=== PATIENT | male | born 1955 | race African-American/Black ===

== ENCOUNTER 2021-06-23 11:31 | Inpatient (IN) | payer MEDICARE, MEDICAID ==
[~2021-06-23] VITALS: Ht 177.8 cm; Wt 107.0 kg
[2021-06-23] MEDS ORDERED: SODIUM CHLORIDE 0.9% 1,000 ML IV ONE ×2 (12:15→15:30)
[2021-06-23 13:04] LABS: HEMOGLOBIN. 10.7 g/dL (14.0-18.0); MEAN CORPUSCULAR HEMOGLOBIN 27.4 pg (28.0-32.0); MEAN CORPUSCULAR VOLUME 86.9 fL (80.0-94.0); MEAN PLATELET VOLUME 8.7 fl (7.4-10.4); PLATELET 429 x1000/uL (130-400); RED BLOOD CELL COUNT 3.91 mill/uL (4.7-6.1)
[2021-06-23 13:11] LABS: CHLORIDE 125 mEq/L (98-107)
[2021-06-23 13:16] LABS: INR 1.2; PARTIAL THROMBOPLASTIN TIME 36.3 sec (23.4-31.0)
[2021-06-23 13:18] LABS: ETHANOL BLOOD < 10 mg/dL
[2021-06-23 13:19] LABS: PHOSPHORUS 2.8 mg/dL (2.5-4.9)
[2021-06-23 13:33] LABS: CREATINE KINASE 314 IU/L (39-308)
[2021-06-23 13:45] LABS: HEPATITIS B SURFACE ANTIGEN NEGATIVE
[2021-06-23 13:48] LABS: BG BASE EXCESS -2.5 mmol/L (-2.0-2.0); BG CARBOXYHEMOGLOBIN 0.9 % (0.5-1.5); BG FRACTION INSPIRED OXYGEN 21; BG HCO3 ACT 20.1 mmol/L (22.0-26.0); BG METHEMOGLOBIN 0.2 % (0.0-1.5); BG OXYGEN SATURATION 89.9 % (92.0-98.5); BG OXYHEMOGLOBIN 88.9 % (94.0-97.0); BG PCO2 28.5 mmHg (35.0-45.0); BG PH 7.467 (7.350-7.450); BG PO2 59.9 mmHg (75.0-100.0); BG TOTAL HEMOGLOBIN 11.6 g/dL (12.0-18.0); BG VENT MODE ROOM AIR
[2021-06-23 13:50] LABS: PLATELET ESTIMATE SLIGHTLY INCREASED
[2021-06-23 15:26] LABS: CLARITY URINE CLOUDY (CLEAR); COLOR URINE DARK YELLOW (YELLOW); KETONES URINE TRACE (NEGATIVE); LEUKOCYTE ESTERASE URINE 1+ (NEGATIVE); NITRITE URINE POSITIVE (NEGATIVE); OCCULT BLOOD URINE TRACE (NEGATIVE); PH URINE 5.5 (4.5-8.0); PROTEIN URINE 1+ (NEGATIVE); SPECIFIC GRAVITY URINE 1.023 (1.005-1.030)
[2021-06-23] MEDS ORDERED: VANCOMYCIN 1 G PREMIX 200 ML IV ONE (15:30)
[2021-06-23] MEDS ORDERED: CEFTRIAXONE 1 G PREMIX 50 ML IV ONE (15:30)
[2021-06-23 17:04] LABS: *BENZODIAZEPINES SCREEN URINE NEGATIVE (NEGATIVE); METHADONE URINE SCREEN NEGATIVE (NEGATIVE); OPIATES URINE SCREEN NEGATIVE (NEGATIVE); PHENCYCLIDINE URINE SCREEN NEGATIVE (NEGATIVE)
[2021-06-23 17:06] LABS: *AMPHETAMINES SCREEN URINE NEGATIVE (NEGATIVE); *BARBITURATES SCREEN URINE NEGATIVE (NEGATIVE); *COCAINE SCREEN URINE NEGATIVE (NEGATIVE); CANNABINOID URINE SCREEN NEGATIVE (NEGATIVE)
[2021-06-23] MEDS ORDERED: ONDANSETRON HCL 4MG/2ML INJ IV PRN (21:30)
[2021-06-23] MEDS ORDERED: DIPHENHYDRAMINE 50MG/ML VIAL IV PRN (21:30)
[2021-06-23] MEDS ORDERED: CLONIDINE 0.1MG TABLET PO PRN (21:30)
[2021-06-23] MEDS ORDERED: MORPHINE SULFATE 2 MG/ML CPJ (NOT FOR IM USE) IV PRN (21:30)
[2021-06-23] MEDS ORDERED: LORAZEPAM 2MG/ML CPJ IV PRN (21:30)
[2021-06-23] MEDS ORDERED: MAGNESIUM/ALUMINUM HYDROXIDE/SIMETHICONE 30ML UDC PO PRN (21:30)
[2021-06-23] MEDS ORDERED: ACETAMINOPHEN 325MG TABLET PO PRN (21:30)
[2021-06-23] MEDS ORDERED: HYDRALAZINE 20MG/ML VIAL IV PRN (21:30)
[2021-06-23] MEDS ORDERED: DOCUSATE SODIUM 100MG CAPSULE PO PRN (21:30)
[2021-06-23] MEDS ORDERED: HYDROCODONE/ACETAMINOPHEN 5/325MG TABLET PO PRN (21:30)
[2021-06-23] MEDS ORDERED: IPRATROPIUM/ALBUTEROL 0.5-3(2.5)MG/3ML NEB HHN PRN (21:30)
[2021-06-23] MEDS ORDERED: GUAIFENESIN 200MG/10ML SUGAR FREE UDC PO PRN (21:30)
[2021-06-23] MEDS: SODIUM CHLORIDE 0.9% INJ 3ML FLUSH IVF SCH (22:00)
[2021-06-23] MEDS ORDERED: NALOXONE HCL 0.4MG/ML VIAL IV PRN (22:15)
[2021-06-23] MEDS: PIPERACILLIN/TAZ 3.375G PREMIX 50 ML IV SCH (22:52)
[2021-06-23] MEDS: DEXTROSE 5% WATER 1,000 ML IV SCH (23:04)
[2021-06-24] MEDS: ENOXAPARIN 30MG/0.3ML SYR SUBCUT SCH ×2 (00:13→20:58)
[2021-06-24] MEDS: SODIUM CHLORIDE 0.9% INJ 3ML FLUSH IVF SCH ×3 (07:57→21:00)
[2021-06-24 08:56] LABS: BASOPHILS % 0.5 % (0.0-2.0); EOSINOPHILS % 4.4 % (0.0-5.0); HEMATOCRIT. 33.5 % (42.0-52.0); HEMOGLOBIN. 10.5 g/dL (14.0-18.0); LYMPHOCYTES % 8.9 % (20.0-50.0); MEAN CORPUSCULAR HEMOGLOBIN 27.5 pg (28.0-32.0); MEAN CORPUSCULAR VOLUME 87.5 fL (80.0-94.0); MEAN PLATELET VOLUME 8.6 fl (7.4-10.4); MONOCYTES % 6.7 % (2.0-8.0); NEUTROPHILS % 79.5 % (40.0-76.0); PLATELET 382 x1000/uL (130-400); RED BLOOD CELL COUNT 3.83 mill/uL (4.7-6.1); RED CELL DISTRIBUTION WIDTH 18.7 % (11.6-14.6)
[2021-06-24 08:59] LABS: CHLORIDE 124 mEq/L (98-107)
[2021-06-24] MEDS: PIPERACILLIN/TAZ 3.375G PREMIX 50 ML IV SCH (09:29)
[2021-06-24] MEDS: DEXTROSE 5% WATER 1,000 ML IV SCH (11:20)
[2021-06-24 12:00] VITALS: BP 122/71
[2021-06-24] MEDS: VANCOMYCIN 1 G PREMIX 200 ML IV SCH (13:50)
[2021-06-24] MEDS: PIPERACILLIN/TAZOBACTAM 3.375G in DEXT 5% WATER 50ML IV SCH ×2 (14:00→21:00)
[2021-06-24 16:00] VITALS: BP 124/84
[2021-06-24 20:00] VITALS: BP 125/66
[2021-06-25] VITALS: BP 110/56
[2021-06-25] MEDS: DEXTROSE 5% WATER 1,000 ML IV SCH ×3 (00:40→21:51)
[2021-06-25 04:00] VITALS: BP 112/59
[2021-06-25] MEDS: SODIUM CHLORIDE 0.9% INJ 3ML FLUSH IVF SCH ×2 (05:59→13:51)
[2021-06-25] MEDS: PIPERACILLIN/TAZOBACTAM 3.375G in DEXT 5% WATER 50ML IV SCH ×3 (05:59→21:50)
[2021-06-25 08:05] VITALS: BP 131/37
[2021-06-25 08:53] LABS: CHLORIDE 123 mEq/L (98-107)
[2021-06-25] MEDS: ENOXAPARIN 30MG/0.3ML SYR SUBCUT SCH ×2 (09:00→21:51)
[2021-06-25] MEDS: VANCOMYCIN 1 G PREMIX 200 ML IV SCH ×2 (11:14)
[2021-06-25 16:00] VITALS: BP 142/71
[2021-06-25 20:00] VITALS: BP 141/77
[2021-06-26] VITALS: BP 128/63
[2021-06-26 04:00] VITALS: BP 117/60
[2021-06-26] MEDS: PIPERACILLIN/TAZOBACTAM 3.375G in DEXT 5% WATER 50ML IV SCH ×3 (05:24→20:49)
[2021-06-26] MEDS: SODIUM HYPOCHLORITE 0.125% 473ML SOLUTION TOP SCH (09:36)
[2021-06-26] MEDS: ENOXAPARIN 30MG/0.3ML SYR SUBCUT SCH ×2 (09:36→20:49)
[2021-06-26 12:00] VITALS: BP 123/65
[2021-06-26] MEDS: VANCOMYCIN 1 G PREMIX 200 ML IV SCH (12:05)
[2021-06-26 16:00] VITALS: BP 120/64
[2021-06-26 16:27] LABS: BASOPHILS % 0.3 % (0.0-2.0); EOSINOPHILS % 3.4 % (0.0-5.0); HEMATOCRIT. 33.3 % (42.0-52.0); HEMOGLOBIN. 10.3 g/dL (14.0-18.0); LYMPHOCYTES % 9.5 % (20.0-50.0); MEAN CORPUSCULAR HEMOGLOBIN 26.8 pg (28.0-32.0); MEAN CORPUSCULAR VOLUME 86.8 fL (80.0-94.0); MEAN PLATELET VOLUME 8.5 fl (7.4-10.4); MONOCYTES % 5.6 % (2.0-8.0); NEUTROPHILS % 81.2 % (40.0-76.0); PLATELET 456 x1000/uL (130-400); RED BLOOD CELL COUNT 3.84 mill/uL (4.7-6.1)
[2021-06-26] MEDS: DEXTROSE 5% WATER 1,000 ML IV SCH (16:32)
[2021-06-26 16:39] LABS: CHLORIDE 117 mEq/L (98-107)
[2021-06-26 20:00] VITALS: BP 121/58
[2021-06-27] MEDS: DEXTROSE 5% WATER 1,000 ML IV SCH ×2 (05:51→19:20)
[2021-06-27] MEDS: PIPERACILLIN/TAZOBACTAM 3.375G in DEXT 5% WATER 50ML IV SCH ×3 (05:51→21:18)
[2021-06-27 08:00] VITALS: BP 137/74
[2021-06-27] MEDS: SODIUM HYPOCHLORITE 0.125% 473ML SOLUTION TOP SCH (09:43)
[2021-06-27] MEDS: ENOXAPARIN 30MG/0.3ML SYR SUBCUT SCH ×2 (09:44→21:00)
[2021-06-27] MEDS: VANCOMYCIN 1 G PREMIX 200 ML IV SCH (11:05)
[2021-06-27 12:00] VITALS: BP 139/69
[2021-06-27 16:00] VITALS: BP 135/74
[2021-06-27 21:00] VITALS: BP 120/70
[2021-06-28] MEDS: PIPERACILLIN/TAZOBACTAM 3.375G in DEXT 5% WATER 50ML IV SCH ×3 (06:20→23:17)
[2021-06-28 08:06] VITALS: BP 138/68
[2021-06-28] MEDS: DEXTROSE 5% WATER 1,000 ML IV SCH ×2 (08:22→23:18)
[2021-06-28] MEDS: SODIUM HYPOCHLORITE 0.125% 473ML SOLUTION TOP SCH (08:22)
[2021-06-28] MEDS: ENOXAPARIN 30MG/0.3ML SYR SUBCUT SCH ×2 (08:23→23:18)
[2021-06-28] MEDS: VANCOMYCIN 1 G PREMIX 200 ML IV SCH (11:21)
[2021-06-28 12:26] VITALS: BP 130/59
[2021-06-28 16:20] VITALS: BP 107/75
[2021-06-28] MEDS: METHYLPREDNISOLONE SOD SUCC 125 MG/2 ML VIAL IV SCH ×2 (18:00→23:17)
[2021-06-28 20:00] VITALS: BP 151/85
[2021-06-29] MEDS: METHYLPREDNISOLONE SOD SUCC 125 MG/2 ML VIAL IV SCH ×3 (05:47→17:18)
[2021-06-29 08:00] VITALS: BP 143/50
[2021-06-29] MEDS: ENOXAPARIN 30MG/0.3ML SYR SUBCUT SCH ×2 (09:00→21:00)
[2021-06-29] MEDS: SODIUM HYPOCHLORITE 0.125% 473ML SOLUTION TOP SCH (09:28)
[2021-06-29 12:00] VITALS: BP 137/65
[2021-06-29] MEDS: VANCOMYCIN 1 G PREMIX 200 ML IV SCH (12:10)
[2021-06-29] MEDS: DEXTROSE 5% WATER 1,000 ML IV SCH (12:11)
[2021-06-30] VITALS: BP 127/76
[2021-06-30] MEDS: DEXTROSE 5% WATER 1,000 ML IV SCH ×3 (00:22→23:44)
[2021-06-30] MEDS: METHYLPREDNISOLONE SOD SUCC 125 MG/2 ML VIAL IV SCH ×5 (00:22→23:42)
[2021-06-30 03:58] VITALS: BP 118/76
[2021-06-30 08:00] VITALS: BP 136/81
[2021-06-30] MEDS: ENOXAPARIN 30MG/0.3ML SYR SUBCUT SCH ×2 (09:00→20:18)
[2021-06-30] MEDS: SODIUM HYPOCHLORITE 0.125% 473ML SOLUTION TOP SCH (09:06)
[2021-06-30 12:00] VITALS: BP 125/65
[2021-06-30 16:00] VITALS: BP 152/73
[2021-06-30 20:00] VITALS: BP 177/69
[2021-07-01] MEDS: METHYLPREDNISOLONE SOD SUCC 125 MG/2 ML VIAL IV SCH (05:49)
[2021-07-01 06:47] LABS: HEMATOCRIT. 34.6 % (42.0-52.0); HEMOGLOBIN. 10.7 g/dL (14.0-18.0); MEAN CORPUSCULAR VOLUME 86.9 fL (80.0-94.0); MEAN PLATELET VOLUME 8.4 fl (7.4-10.4); PLATELET 583 x1000/uL (130-400); RED BLOOD CELL COUNT 3.98 mill/uL (4.7-6.1); RED CELL DISTRIBUTION WIDTH 19.4 % (11.6-14.6)
[2021-07-01 07:03] LABS: CHLORIDE 110 mEq/L (98-107)
[2021-07-01 08:00] VITALS: BP 137/41
[2021-07-01] MEDS: ENOXAPARIN 30MG/0.3ML SYR SUBCUT SCH ×2 (09:53→21:00)
[2021-07-01] MEDS: SODIUM HYPOCHLORITE 0.125% 473ML SOLUTION TOP SCH (09:54)
[2021-07-01 12:00] VITALS: BP 129/61
[2021-07-01 16:12] VITALS: BP 129/61
[2021-07-01 20:32] VITALS: BP 164/68
[2021-07-01 22:54] LABS: PLATELET ESTIMATE INCREASED
[2021-07-02 00:19] VITALS: BP 155/70
[2021-07-02 04:00] VITALS: BP 146/88
[2021-07-02 05:51] LABS: CHLORIDE 111 mEq/L (98-107)
[2021-07-02 06:38] LABS: HEMATOCRIT. 33.6 % (42.0-52.0); HEMOGLOBIN. 10.7 g/dL (14.0-18.0); MEAN CORPUSCULAR HEMOGLOBIN 27.5 pg (28.0-32.0); MEAN CORPUSCULAR VOLUME 86.5 fL (80.0-94.0); MEAN PLATELET VOLUME 8.5 fl (7.4-10.4); PLATELET 523 x1000/uL (130-400); RED BLOOD CELL COUNT 3.89 mill/uL (4.7-6.1); RED CELL DISTRIBUTION WIDTH 18.9 % (11.6-14.6)
[2021-07-02 08:00] VITALS: BP 130/78
[2021-07-02] MEDS: SODIUM HYPOCHLORITE 0.125% 473ML SOLUTION TOP SCH (09:14)
[2021-07-02] MEDS: ENOXAPARIN 30MG/0.3ML SYR SUBCUT SCH ×2 (09:14→20:36)
[2021-07-02 12:00] VITALS: BP 120/60
[2021-07-02 13:39] LABS: PLATELET ESTIMATE INCREASED
[2021-07-02 16:03] VITALS: BP 144/79
[2021-07-02 20:00] VITALS: BP 136/65
[2021-07-03] VITALS: BP 132/81
[2021-07-03 04:00] VITALS: BP 149/84
[2021-07-03 08:00] VITALS: BP 154/90
[2021-07-03 12:00] VITALS: BP 152/86
[2021-07-03] MEDS: SODIUM HYPOCHLORITE 0.125% 473ML SOLUTION TOP SCH (12:51)
[2021-07-03] MEDS: ENOXAPARIN 30MG/0.3ML SYR SUBCUT SCH ×2 (13:19→20:15)
[2021-07-03 16:00] VITALS: BP 145/82
[2021-07-03 20:00] VITALS: BP 167/81
[2021-07-04 04:00] VITALS: BP 141/73
[2021-07-04 08:00] VITALS: BP 120/64
[2021-07-04] MEDS: SODIUM HYPOCHLORITE 0.125% 473ML SOLUTION TOP SCH (08:53)
[2021-07-04] MEDS: ENOXAPARIN 30MG/0.3ML SYR SUBCUT SCH ×2 (08:53→21:00)
[2021-07-04 12:00] VITALS: BP 138/52
[2021-07-04 16:00] VITALS: BP 132/63
[2021-07-05 04:00] VITALS: BP 165/70
[2021-07-05] MEDS: ENOXAPARIN 30MG/0.3ML SYR SUBCUT SCH ×2 (09:33→20:55)
[2021-07-05] MEDS: SODIUM HYPOCHLORITE 0.125% 473ML SOLUTION TOP SCH (09:34)
[2021-07-05 12:00] VITALS: BP 136/68
[2021-07-05 16:00] VITALS: BP 131/67
[2021-07-05] MEDS ORDERED: HYDRALAZINE 10 MG in SODIUM CHLORIDE 0.9% 49.5 ML IV PRN (22:00)
[2021-07-06 00:59] VITALS: BP 149/68
[2021-07-06] MEDS: SODIUM HYPOCHLORITE 0.125% 473ML SOLUTION TOP SCH (09:00)
[2021-07-06] MEDS: ENOXAPARIN 30MG/0.3ML SYR SUBCUT SCH ×2 (10:23→21:51)
[2021-07-06 20:00] VITALS: BP 151/77
[2021-07-07 04:00] VITALS: BP 134/78
[2021-07-07] MEDS ORDERED: DEXTROSE 50% WATER 50ML SYRINGE IV PRN (06:45)
[2021-07-07] MEDS ORDERED: BLOOD SUGAR DIAGNOSTIC STRIP TEST SCH (07:20)
[2021-07-07] MEDS ORDERED: INSULIN LISPRO 100 UNITS/ML SUBCUT SCH (07:50)
[2021-07-07 08:00] VITALS: BP 140/80
[2021-07-07] MEDS: ENOXAPARIN 30MG/0.3ML SYR SUBCUT SCH ×2 (09:27→21:48)
[2021-07-07 12:00] VITALS: BP 131/52
[2021-07-07 16:00] VITALS: BP 123/57
[2021-07-07 20:00] VITALS: BP 146/80
[2021-07-08 04:00] VITALS: BP 120/75
[2021-07-08 08:00] VITALS: BP 123/75
[2021-07-08] MEDS: ENOXAPARIN 30MG/0.3ML SYR SUBCUT SCH ×2 (08:59→22:28)
[2021-07-08] MEDS: SODIUM HYPOCHLORITE 0.125% 473ML SOLUTION TOP SCH (08:59)
[2021-07-08 12:00] VITALS: BP 143/75
[2021-07-08 16:00] VITALS: BP 140/59
[2021-07-08 20:00] VITALS: BP 137/68
[2021-07-09 04:00] VITALS: BP 125/65
[2021-07-09 06:47] LABS: BASOPHILS % 0.9 % (0.0-2.0); EOSINOPHILS % 5.1 % (0.0-5.0); HEMATOCRIT. 36.4 % (42.0-52.0); HEMOGLOBIN. 11.4 g/dL (14.0-18.0); LYMPHOCYTES % 18.1 % (20.0-50.0); MEAN CORPUSCULAR HEMOGLOBIN 27.2 pg (28.0-32.0); MEAN CORPUSCULAR VOLUME 87.3 fL (80.0-94.0); MEAN PLATELET VOLUME 8.9 fl (7.4-10.4); NEUTROPHILS % 68.9 % (40.0-76.0); PLATELET 344 x1000/uL (130-400); RED BLOOD CELL COUNT 4.17 mill/uL (4.7-6.1); RED CELL DISTRIBUTION WIDTH 19.5 % (11.6-14.6)
[2021-07-09 07:09] LABS: CHLORIDE 110 mEq/L (98-107)
[2021-07-09 08:00] VITALS: BP 134/71
[2021-07-09] MEDS: ENOXAPARIN 30MG/0.3ML SYR SUBCUT SCH ×2 (09:00→21:00)
[2021-07-09] MEDS: SODIUM HYPOCHLORITE 0.125% 473ML SOLUTION TOP SCH (09:00)
[2021-07-09 12:00] VITALS: BP 146/65
[2021-07-09 16:00] VITALS: BP 148/68
[2021-07-09 20:00] VITALS: BP 125/90
[2021-07-10 08:00] VITALS: BP 135/83
[2021-07-10] MEDS: SODIUM HYPOCHLORITE 0.125% 473ML SOLUTION TOP SCH (09:35)
[2021-07-10] MEDS: ENOXAPARIN 30MG/0.3ML SYR SUBCUT SCH ×2 (09:35→21:21)
[2021-07-10 12:00] VITALS: BP 137/57
[2021-07-10 20:00] VITALS: BP 146/80
[2021-07-11] VITALS: BP 133/48
[2021-07-11 04:00] VITALS: BP 127/82
[2021-07-11] MEDS ORDERED: DEXTROSE 50% WATER 50ML SYRINGE IV ONE (08:15)
[2021-07-11] MEDS ORDERED: CALCIUM CHLORIDE 1GM/10ML SYR IV ONE (08:15)
[2021-07-11] MEDS ORDERED: SODIUM BICARBONATE 8.4% 1 MEQ/ML 50ML SYR IV ONE (08:15)
[2021-07-11] MEDS ORDERED: EPINEPHRINE 0.1MG/ML (1:10,000) 10ML SYR ONE (08:15)
[2021-07-11] MEDS ORDERED: ZINC SULFATE 220 MG ( 50 ) CAPSULE PO SCH (09:00)
[2021-07-11] MEDS ORDERED: ASCORBIC ACID 500 MG TABLET PO SCH (09:00)
[2021-07-11] MEDS: ENOXAPARIN 30MG/0.3ML SYR SUBCUT SCH (09:00)
[2021-07-11 12:00] VITALS: BP 131/57
== END 2021-07-11 16:05 | DRG 720 ==
LOC: ER 11:31 → EDBD 20:41 → MICUSO 20:41 → EDBEDREQTM 20:45 → EDBEDREQ 20:45 → 6WST 06-24 07:21 → 6EST 07-03 22:10
PROVIDERS: ADMIT Internal Medicine; ATTEND Internal Medicine
PROC: 5A12012 Performance of Cardiac Output, Single, Manual (ICD-10-PCS; principal; 2021-07-11)
PROC: 0BH17EZ Insertion of Endotracheal Airway into Trachea, Via Natural or Artificial Opening (ICD-10-PCS; 2021-07-11)
DX: A41.9 Sepsis, unspecified organism (principal); L89.210 Pressure ulcer of right hip, unstageable; G92.8 Other toxic encephalopathy; E46 Unspecified protein-calorie malnutrition; E87.0 Hyperosmolality and hypernatremia; J18.9 Pneumonia, unspecified organism; D64.9 Anemia, unspecified; S31.109A Unspecified open wound of abdominal wall, unspecified quadrant without penetration into peritoneal cavity, initial encounter; E86.0 Dehydration; N39.0 Urinary tract infection, site not specified; R79.89 Other specified abnormal findings of blood chemistry; L89.156 Pressure-induced deep tissue damage of sacral region; I11.0 Hypertensive heart disease with heart failure; I50.9 Heart failure, unspecified; Z20.822 Contact with and (suspected) exposure to COVID-19; X58.XXXA Exposure to other specified factors, initial encounter; S31.30XA Unspecified open wound of scrotum and testes, initial encounter; Z86.73 Personal history of transient ischemic attack (TIA), and cerebral infarction without residual deficits; Z68.33 Body mass index [BMI] 33.0-33.9, adult; Z59.00 Homelessness unspecified; Y93.89 Activity, other specified; Y92.89 Other specified places as the place of occurrence of the external cause; Y99.8 Other external cause status; Z91.19 Patient's noncompliance with other medical treatment and regimen; R77.8 Other specified abnormalities of plasma proteins
CPT/HCPCS: 36415; 36600; 71045; 80048; 80053; 80202; 80305; 80307; 80320; 80329; 81003; 82040; 82140; 82248; 82375; 82550; 82805; 82962; 83605; 83735; 83880; 84100; 84134; 84443; 84484; 85025; 86705; 86709; 86803; 86850; 86900; 87340; 87426; 92950; 93005; 93306; 97110; 97162; 97530; 99291; J0360; J0696; J1650; J2543; J2930; J3370; J3490; J7030; J7042; J7060; J7070; A4315; G0480